=== PATIENT | male | born 1995 | race Hispanic/Latino ===

== ENCOUNTER 2018-01-22 10:07 | Emergency (ER) | payer SELFPAY ==
[2018-01-22] MEDS ORDERED: LIDOCAINE HCL-MPF 1% 2ML VIAL ONE (10:45)
[2018-01-22] MEDS ORDERED: KETOROLAC TROMETHAMINE 60 MG/2 ML VIAL ONE (10:45)
[2018-01-22] MEDS ORDERED: CEFTRIAXONE SODIUM 1 GM ONE (10:46)
[2018-01-22] MEDS ORDERED: AZITHROMYCIN 250 MG TABLET PO ONE (10:46)
[2018-01-22 10:54] LABS: APPEARANCE,URINE Clear (CLEAR); BILIRUBIN,URINE Negative (NEGATIVE); COLOR,URINE Yellow (YELLOW); GLUCOSE, URINE (UA) Negative (NEGATIVE); KETONES,URINE Negative (NEGATIVE); LEUKOCYTE ESTERASE ,URINE Trace (NEGATIVE); NITRATE,URINE Negative (NEGATIVE); OCCULT BLOOD,URINE Negative (NEGATIVE); PH,URINE 5.5 (5.0-8.0); PROTEIN,URINE Negative (NEGATIVE); UROBILINOGEN,URINE 0.2 mg/dL (0.2-1.0)
[2018-01-22 11:05] LABS: BACTERIA,URINE Rare /HPF (None Seen); MUCUS,URINE Moderate LPF (None Seen); RBC,URINE None Seen /HPF (0-1); SQUAMOUS EPITHELIAL CELL,UR Rare /HPF (0-2)
[2018-01-22 11:15] LABS: AMPHET/METH SCREEN,URINE NEGATIVE (NEGATIVE); BARBITURATE SCREEN, URINE NEGATIVE (NEGATIVE); BENZODIAZEPINES SCREEN,URINE NEGATIVE (NEGATIVE); CANNABINOID SCREEN,URINE NEGATIVE (NEGATIVE); COCAINE SCREEN,URINE NEGATIVE (NEGATIVE); OPIATE SCREEN,URINE NEGATIVE (NEGATIVE); PHENCYCLIDINE SCREEN,URINE NEGATIVE (NEGATIVE)
== END 2018-01-22 11:33 | disposition home or self-care (01) ==
LOC: EDH 10:07
DX: N34.2 Other urethritis (principal); Z88.8 Allergy status to other drugs, medicaments and biological substances
CPT/HCPCS: 80305; 81001; 87486; 87797; 93005; 96372 ×2; 99285; J0696; J1885; J3490